=== PATIENT | female | born 1990 | race Two or more races ===

== ENCOUNTER 2022-06-22 01:09 | Emergency (ER) | payer OTHER ==
[~2022-06-22] VITALS: Ht 165.1 cm; Wt 63.5 kg
--- NOTE | 2022-06-22 01:25 | NUR ---
BIBS C/O MIGRAINE/HEADACHE SINCE 1PM. TOOK TYLENOL AND IBUOPROFEN RN TELEPHONE TRIAGE WITH NO RELIEF. PATIENT ALERT AND ORIENTED X3. AMBULATORY WITH NON LABORED BREATHING IN BED 10 ON MONITOR AND POX AWAITING MD CRONIN.
[2022-06-22] MEDS ORDERED: METOCLOPRAMIDE HCL 10 MG/2 ML VIAL ONE (01:36)
[2022-06-22] MEDS ORDERED: SUMATRIPTAN SUCCINATE 6 MG/0.5 ML VIAL SQ ONE ×2 (01:36→02:00)
[2022-06-22] MEDS ORDERED: IV NS 0.9% 1,000 ML BAG IV ONE (02:00)
[2022-06-22] MEDS ORDERED: METOCLOPRAMIDE HCL 10 MG/2 ML VIAL IV ONE (02:00)
[2022-06-22 02:32] VITALS: BP 113/70
--- NOTE | 2022-06-22 02:32 | NUR ---
Patient discharged to home in stable condition. Written and verbal after care instructions given. Patient verbalizes understanding of instruction.
== END 2022-06-22 02:32 | disposition home or self-care (01) ==
LOC: ER 01:19
DX: G43.909 Migraine, unspecified, not intractable, without status migrainosus (principal); R11.2 Nausea with vomiting, unspecified
CPT/HCPCS: 99284; 96374; 96361; 96372; J3030; J2765; J7030 ×2